=== PATIENT | male | born 1965 | race Caucasian/White ===

== ENCOUNTER 2024-06-03 10:02 | Day surgery (SDC) | payer BC, OTHER ==
[2024-05-28 13:47] VITALS: BMI 26.6
[2024-06-03] MEDS ORDERED: FENTANYL CITRATE/PF 50 MCG/ML VIAL ONE (11:01)
[2024-06-03] MEDS ORDERED: BUPIVACAINE HCL/PF 0.5% (5 MG/ML) 30 ML VIAL IJ ONE (11:01)
[2024-06-03] MEDS ORDERED: MIDAZOLAM HCL 2 MG/2 ML SINGLE DOSE VIAL ONE (11:01)
[2024-06-03] MEDS ORDERED: DEXAMETHASONE SOD PHOSPHATE 10 MG/1 ML VIAL ONE (11:01)
[2024-06-03] MEDS ORDERED: BUPIVACAINE HCL/EPINEPHRINE/PF 30 ML VIAL IJ ONE ×2 (11:03→12:07)
[2024-06-03] MEDS ORDERED: EPINEPHrine 1:1,000 1,000 MCG/ML ML ONE (11:03)
[2024-06-03] MEDS ORDERED: ROCURONIUM BROMIDE 50 MG/5 ML SYRINGE ONE (11:07)
[2024-06-03] MEDS ORDERED: SUCCINYLCHOLINE CHLORIDE 200 MG/10 ML SYRINGE ONE (11:07)
[2024-06-03] MEDS ORDERED: PROPOFOL 20 ML ONE (11:07)
[2024-06-03] MEDS ORDERED: ONDANSETRON 4 MG/2 ML VIAL IVPUSH PRN (15:39)
[2024-06-03] MEDS ORDERED: oxyCODONE HCL 5 MG TABLET PO PRN (15:40)
[2024-06-03] MEDS ORDERED: ACETAMINOPHEN INJECTION 100 ML ONE (15:40)
[2024-06-03] MEDS: ACETAMINOPHEN 1000 MG/100 ML BAG IVPB ONE (15:43)
[2024-06-03] MEDS ORDERED: LACTATED RINGERS SOLUTION 1,000 ML IV SCH (15:45)
[2024-06-03] MEDS ORDERED: oxyCODONE HCL 5 MG TABLET ONE (16:15)
[2024-06-03] MEDS: oxyCODONE HCL 5 MG TABLET PO PRN (16:16)
[2024-06-03 16:22] VITALS: RESP 14; TEMP 97.5
[2024-06-03 16:52] VITALS: BP 102/55; PULSE 78
[2024-06-03] MEDS ORDERED: ACETAMINOPHEN 325 MG TABLET (FP) PO PRN (22:00)
== END 2024-06-03 16:54 | disposition home or self-care (01) ==
LOC: FASU 10:02
PROVIDERS: ATTEND Orthopaedic Surgery
PROC: 0KX Muscles, Transfer (ICD-10-PCS; 2024-06-03)
PROC: 0RBK4ZZ Excision of Left Shoulder Joint, Percutaneous Endoscopic Approach (ICD-10-PCS; principal; 2024-06-03 12:33)
PROC: 0LS44ZZ Reposition Left Upper Arm Tendon, Percutaneous Endoscopic Approach (ICD-10-PCS; 2024-06-03 12:33)
DX: S46.012D Strain of muscle(s) and tendon(s) of the rotator cuff of left shoulder, subsequent encounter (principal); M75.22 Bicipital tendinitis, left shoulder; M75.52 Bursitis of left shoulder; M65.822 Other synovitis and tenosynovitis, left upper arm; S43.432D Superior glenoid labrum lesion of left shoulder, subsequent encounter; M75.02 Adhesive capsulitis of left shoulder; M79.5 Residual foreign body in soft tissue
CPT/HCPCS: 88304-TC; 94760; C1713; J0131; J1100